=== PATIENT | male | born 1995 | race Caucasian/White ===

== ENCOUNTER 2017-03-22 18:56 | Emergency (ER) | payer SELFPAY ==
[2017-03-22 19:16] VITALS: BP 115/66; PULSE 107; RESP 18; TEMP 97.7
[2017-03-22] MEDS ORDERED: SULFAMETHOX-TMP 800-160MG 1 EACH TAB PO STA (19:31)
[2017-03-22] MEDS ORDERED: HYDROcodone/APAP 5-325MG 1 EACH TAB PO STA (19:31)
--- NOTE | 2017-03-22 19:32 | ED ---
Skin/Abscess/FB HPI - General Chief complaint: Skin/Abscess/Foreign Body Stated complaint: boil, dizziness, sweating, nausea Time Seen by Provider: 03/22/17 19:18 Source: patient, RN notes reviewed Mode of arrival: ambulatory Limitations: no limitations - History of Present Illness Initial comments: This 22-year-old male presents emergency Department chief complaint of abscess on his buttocks. Patient states started approximately one week ago. Patient states he had 1 then the past states it ruptured on his own 1 week. Patient states that it's getting so painful that he gets dizzy and lightheaded from the pain. States that he has no dizziness at this time. Denies fever, chills. Patient states there is no current drainage she's been putting some topical ointment on it with no relief. - Related Data Previous Rx's Medication Instructions Recorded Hydrocodone/Acetaminophen [[place] 1 tab PO Q6HR PRN #15 tab 03/22/17 5-325] Sulfamethox-Tmp 800-160Mg [Bactrim 1 each PO Q12HR #20 tab 03/22/17 Ds] Allergies Allergy/AdvReac Type Severity Reaction Status Date / Time No Known Allergies Allergy Verified 03/22/17 19:11 Review of Systems ROS Statement: Those systems with pertinent positive or pertinent negative responses have been documented in the HPI. ROS Other: All systems not noted in ROS Statement are negative. Past Medical History Past Medical History: Asthma History of Any Multi-Drug Resistant Organisms: None Reported Past Surgical History: Orthopedic Surgery Additional Past Surgical History / Comment(s): right knee Past Psychological History: Depression Smoking Status: Current every day smoker Past Alcohol Use History: Occasional Past Drug Use History: None Reported General Exam Limitations: no limitations General appearance: alert, in no apparent distress Head exam: Present: atraumatic, normocephalic, normal inspection Respiratory exam: Present: normal lung sounds bilaterally. Absent: respiratory distress, wheezes, rales, rhonchi, stridor Cardiovascular Exam: Present: regular rate, normal rhythm, normal heart sounds. Absent: systolic murmur, diastolic murmur, rubs, gallop, clicks Skin exam: Present: warm, dry, intact, normal color, other (There is a 2 cm abscess top of the buttocks primarily on the left that is very tender and fluctuant mild erythema). Absent: rash Course Vital Signs 03/22/17 19:12 Temperature 97.7 F Pulse Rate 107 H Respiratory 18 Rate Blood Pressure 115/66 O2 Sat by Pulse 97 Oximetry Procedures - Procedures Initial comment: I attempted to I&D of abscess. I did inject around the abscess with 8 mL of 1% lidocaine. Patient repetitively asked me to stop and grabbed at my hand and wrist several times during the procedure. I did tell the patient not to grab towards my hands as I have a needle in my hand. Patient refused to continue any further he states he cannot tolerate it and that he would grab my hand again. Medical Decision Making - Medical Decision Making 22-year-old male presents emergency department for buttocks abscess. Patient had attempted I&D of the abscess the patient refused. Patient discharged on antibiotics and pain medication. I did inform a few sitz baths and follow-up with on-call surgery. Disposition Clinical Impression: Abscess of buttock, Anger reaction Disposition: HOME SELF-CARE Condition: Stable Instructions: Abscess (ED) Additional Instructions: Please return to the Emergency Department if symptoms worsen or any other concerns. Prescriptions: Hydrocodone/Acetaminophen [[place] 5-325] 1 tab PO Q6HR PRN #15 tab PRN Reason: Pain Sulfamethox-Tmp 800-160Mg [Bactrim Ds] 1 each PO Q12HR #20 tab Referrals: None,Stated [Primary Care Provider] - 1-2 days Bell Donis DO [Doctor of Osteopathic Medicine] - 1-2 days Time of Disposition: 19:31
== END 2017-03-22 19:52 | disposition home or self-care (01) ==
LOC: EC 18:56
DX: L02.31 Cutaneous abscess of buttock (principal); R45.4 Irritability and anger; F17.200 Nicotine dependence, unspecified, uncomplicated; Z53.20 Procedure and treatment not carried out because of patient's decision for unspecified reasons
CPT/HCPCS: 99283